=== PATIENT | female | born 1990 | race Caucasian/White ===

== ENCOUNTER 2017-09-24 23:07 | Emergency (ER) | payer MEDICAID ==
[~2017-09-24] VITALS: Ht 170.2 cm; Wt 150.0 kg
[~2017-09-24 23:07] MED LIST: BISA10SU60 RC; FERR325T28 PO; LURA60TA2 PO; MEDR150V IM; PANT-47 PO; SERT50TA PO
[2017-09-24] MEDS ORDERED: sodium polystyrene sulfonate ENEMA 30gm/120ml RC ONE (23:25)
[2017-09-25] MEDS ORDERED: normal saline 1000ML IV soln IVB ONE (00:40)
[2017-09-25] MEDS ORDERED: ketorolac trometh. 30mg/ml inj. IV ONE (00:40)
[2017-09-25 01:50] VITALS: BP 128/70
== END 2017-09-25 01:51 | disposition home or self-care (01) ==
LOC: ER 23:08
DX: R07.89 Other chest pain (principal); K59.00 Constipation, unspecified; J45.909 Unspecified asthma, uncomplicated; Z90.49 Acquired absence of other specified parts of digestive tract; Z79.899 Other long term (current) drug therapy; Z91.013 Allergy to seafood
CPT/HCPCS: 93005; 96361; 96374; 99284; J1885; J7030

== ENCOUNTER 2018-04-09 08:36 | Outpatient (CLI) | payer MEDICAID | END 2018-04-09 23:59 | disposition home or self-care (01) | LOC: RAD 08:36 | PROVIDERS: ATTEND Family Medicine | DX: R56.9 Unspecified convulsions (principal); J45.909 Unspecified asthma, uncomplicated | CPT/HCPCS: 95816 ==

== ENCOUNTER 2018-08-01 16:46 | Emergency (ER) | payer MEDICAID ==
[~2018-08-01] VITALS: Ht 170.2 cm; Wt 168.0 kg
[2018-08-01 16:49] VITALS: BP 143/92
[2018-08-01] MEDS ORDERED: LORazepam 1 MG tablet PO ONE (17:00)
[2018-08-01] MEDS ORDERED: LORazepam 0.5 MG tablet PO ONE (17:10)
== END 2018-08-01 17:24 | disposition home or self-care (01) ==
LOC: ER 16:47
DX: F41.9 Anxiety disorder, unspecified (principal); J45.909 Unspecified asthma, uncomplicated; E66.01 Morbid (severe) obesity due to excess calories; Z90.49 Acquired absence of other specified parts of digestive tract
CPT/HCPCS: 93005; 99284

== ENCOUNTER 2019-03-21 20:29 | Emergency (ER) | payer MEDICAID ==
[~2019-03-21] VITALS: Ht 170.2 cm; Wt 146.0 kg
[2019-03-21 20:47] VITALS: BP 150/75
[2019-03-21] MEDS ORDERED: acetaminophen 325mg tablet PO ONE (20:55)
== END 2019-03-21 22:10 | disposition home or self-care (01) ==
LOC: ER 20:30
DX: M25.532 Pain in left wrist (principal); J45.909 Unspecified asthma, uncomplicated; Z90.49 Acquired absence of other specified parts of digestive tract; Z98.890 Other specified postprocedural states; Z79.899 Other long term (current) drug therapy
CPT/HCPCS: 73110; 99283

== ENCOUNTER 2019-08-08 21:53 | Observation (INO) | payer MEDICAID ==
[~2019-08-08] VITALS: Ht 170.2 cm; Wt 163.2 kg
[2019-08-08] MEDS ORDERED: LURA80TA3 PO (22:04)
[2019-08-08] MEDS ORDERED: LAMO100T2 PO (22:05)
[2019-08-08] MEDS ORDERED: METF-950 PO (22:10)
[2019-08-08] MEDS ORDERED: glycerin ADULT rectal suppository RC ONE (22:50)
[2019-08-08] MEDS ORDERED: magnesium citrate 296ml oral solution PO ONE (22:50)
[2019-08-08] MEDS ORDERED: ondansetron/PF 4mg/2ml inj IV PRN (23:05)
[2019-08-08] MEDS ORDERED: acetaminophen 325mg tablet PO PRN (23:05)
[2019-08-08] MEDS ORDERED: mag hydrox/Alum hydrox/simeth 30ml oral suspension PO PRN (23:05)
[2019-08-08] MEDS ORDERED: insulin Lispro (HumaLOG) vial - multi-dose SQ SCH (23:05)
[2019-08-08] MEDS ORDERED: dextrose 50%-water 50ml dispensing syringe IV PRN ×2 (23:05)
[2019-08-08] MEDS ORDERED: MESSAGE TO PHARMACY PO ONE (23:05)
[2019-08-08] MEDS ORDERED: glucagon, human recombinant 1mg kit SUBCUT PRN (23:05)
[2019-08-08] MEDS ORDERED: dextrose ORAL solution 15 GM/59 ML bottle PO PRN ×2 (23:05)
[2019-08-08 23:51] LABS: BASOPHILS # (AUTO) 0.1 X10'3 (0-0.2); BASOPHILS % (AUTO) 0.7 % (0-1); EOSINOPHILS # (AUTO) 0.1 X10'3 (0-0.9); EOSINOPHILS % (AUTO) 1.1 % (0-6); HEMATOCRIT 34.3 % (35.0-45.0); LYMPHOCYTES # (AUTO) 2.3 X10'3 (1.1-4.8); LYMPHOCYTES % (AUTO) 22.7 % (21-51); MEAN CORPUSCULAR HEMOGLOBIN 23.1 PG (27.0-31.0); MEAN CORPUSCULAR HGB CONC 32.2 g/dL (33.0-36.5); MEAN CORPUSCULAR VOLUME 71.7 FL (78-98); MONOCYTES # (AUTO) 0.5 X10'3 (0-0.9); MONOCYTES % (AUTO) 4.7 % (2-12); NEUTROPHILS # (AUTO) 7.3 X10'3 (1.8-7.7); NEUTROPHILS % (AUTO) 70.8 % (42-75); PLATELET COUNT 505 X10'3 (140-440); RED BLOOD COUNT 4.78 X10'6 (4.20-5.60); RED CELL DISTRIBUTION WIDTH 18.6 % (11.5-14.5); WHITE BLOOD COUNT 10.3 X10'3 (4.5-11.0)
[2019-08-09 00:11] LABS: HEMOGLOBIN A1C 6.1 % (4.5-6.2)
[2019-08-09 00:14] LABS: ALANINE AMINOTRANSFERASE 26 U/L (12-78); ALBUMIN 3.5 G/DL (3.4-5.0); ALBUMIN/GLOBULIN RATIO 0.9 (1.1-1.5); ALKALINE PHOSPHATASE 123 IU/L (46-116); ANION GAP 12 (8-16); ASPARTATE AMINO TRANSFERASE 12 U/L (10-37); BILIRUBIN,TOTAL 0.2 MG/DL (0.1-1.0); BLOOD UREA NITROGEN 13 MG/DL (7-18); BUN/CREATININE RATIO 14.8 (6.6-38.0); CALCIUM 9.1 MG/DL (8.5-10.1); CHLORIDE 106 MMOL/L (99-107); CREATININE 0.88 MG/DL (0.40-0.90); GLUCOSE 99 MG/DL (70-104); POTASSIUM 4.1 MMOL/L (3.5-5.1); SODIUM 143 MMOL/L (135-145); TOTAL CARBON DIOXIDE 25.4 MMOL/L (24-32); TOTAL PROTEIN 7.5 G/DL (6.4-8.2); eGFR 77 ML/MIN
[2019-08-09 00:24] LABS: ANISOCYTOSIS 2+; ELLIPTOCYTES FEW; LARGE PLATELETS FEW; MICROCYTOSIS 1+; PLATELET ESTIMATE INCREASED; POLYCHROMASIA FEW
[2019-08-09 00:35] VITALS: BP 140/73
--- NOTE | 2019-08-09 03:10 | NUR ---
Patient had a BM, foreign object expelled and placed in bag . Talked to Dr. Marcelo. Pt will remain NPO for scheduled KUB in the morning. Pt aware of treatment and agrees.
--- NOTE | 2019-08-09 06:15 | NUR ---
Problems reprioritized. Patient report given, questions answered & plan of care reviewed with PAO Jose.
--- NOTE | 2019-08-09 06:20 | NUR ---
After receiving report from NOC shift, morning nurse in to meet patient and check on her. Patient stated a desire to leave AMA. Patient was due to have a KUB this AM to reassess the status of the foreign body. Patient stated that this had come out already and she feels much better and really doesn't want to stay. MD notified and stated he was not ready to discharge patient. This was explained to patient and partner bedside. Patient was educated about the risks involved with leave AMA, patient stated an understanding of these and still wanted to leave AMA. Patient was alert, oriented and capable of making own decisions. Patient signed AMA paper, grabbed belongings and left with partner. Patient did not have an PIV to remove.
[2019-08-09] MEDS ORDERED: lamoTRIgine 100mg tablet PO SCH (08:00)
[2019-08-09] MEDS ORDERED: insulin glargine (Lantus) pen - multi-dose SQ SCH (21:00)
[2019-08-09] MEDS ORDERED: lurasidone 20mg tablet PO SCH (21:00)
== END 2019-08-09 06:20 | disposition left against medical advice (07) ==
LOC: ER 21:53 → ED HOLD 23:31 → SUR 3N 08-09 00:15
PROVIDERS: ADMIT Family Medicine; ATTEND Family Medicine
DX: T18.5XXA Foreign body in anus and rectum, initial encounter (principal); J45.909 Unspecified asthma, uncomplicated; G47.33 Obstructive sleep apnea (adult) (pediatric); E11.9 Type 2 diabetes mellitus without complications; F31.9 Bipolar disorder, unspecified; Z99.89 Dependence on other enabling machines and devices; Z79.84 Long term (current) use of oral hypoglycemic drugs; Z79.899 Other long term (current) drug therapy; Z91.013 Allergy to seafood
CPT/HCPCS: 36415; 74018; 80053; 83036; 85025; 87081; 99284; G0378; J1815

== ENCOUNTER → 2021-04-30 | Emergency (ER) | payer SELFPAY ==
[~2021-04-30] VITALS: Ht 170.2 cm; Wt 172.0 kg
[~2021-04-30] MED LIST changes: -BISA10SU60 RC; -FERR325T28 PO; +LAMO100T2 PO; -LURA60TA2 PO; +LURA80TA3 PO; +METF-950 PO; -PANT-47 PO; -SERT50TA PO
[2021-04-30 08:01] VITALS: BP 139/77
[2021-04-30 08:59] LABS: BASOPHILS % (AUTO) 0.4 % (0-1); EOSINOPHILS # (AUTO) 0.1 X10'3 (0-0.9); EOSINOPHILS % (AUTO) 1.1 % (0-6); HEMATOCRIT 32.9 % (35.0-45.0); HEMOGLOBIN 10.7 g/dl (12.0-16.0); LYMPHOCYTES # (AUTO) 1.9 X10'3 (1.1-4.8); LYMPHOCYTES % (AUTO) 22.1 % (21-51); MEAN CORPUSCULAR HEMOGLOBIN 23.8 PG (27.0-31.0); MEAN CORPUSCULAR HGB CONC 32.5 g/dL (33.0-36.5); MEAN CORPUSCULAR VOLUME 73.3 FL (78-98); MEAN PLATELET VOLUME 7.9 FL (7.4-10.4); MONOCYTES # (AUTO) 0.5 X10'3 (0-0.9); MONOCYTES % (AUTO) 5.4 % (2-12); NEUTROPHILS # (AUTO) 6.1 X10'3 (1.8-7.7); PLATELET COUNT 462 X10'3 (140-440); RED BLOOD COUNT 4.49 X10'6 (4.20-5.60); RED CELL DISTRIBUTION WIDTH 17.3 % (11.5-14.5); WHITE BLOOD COUNT 8.6 X10'3 (4.5-11.0)
[2021-04-30 09:13] LABS: ALANINE AMINOTRANSFERASE 28 U/L (12-78); ALBUMIN 3.3 G/DL (3.4-5.0); ALBUMIN/GLOBULIN RATIO 0.8 (1.1-1.5); ALKALINE PHOSPHATASE 127 IU/L (46-116); ANION GAP 8 (8-16); ASPARTATE AMINO TRANSFERASE 20 U/L (10-37); BILIRUBIN,TOTAL 0.4 MG/DL (0.1-1.0); BLOOD UREA NITROGEN 14 MG/DL (7-18); BUN/CREATININE RATIO 15.2 (6.6-38.0); CHLORIDE 107 MMOL/L (99-107); CREATININE 0.92 MG/DL (0.40-0.90); GLUCOSE 105 MG/DL (70-104); LIPASE 67 U/L (73-393); POTASSIUM 4.1 MMOL/L (3.5-5.1); SODIUM 140 MMOL/L (135-145); TOTAL CARBON DIOXIDE 25.2 MMOL/L (24-32); TOTAL PROTEIN 7.3 G/DL (6.4-8.2); eGFR 72 ML/MIN
[2021-04-30 10:34] LABS: URINE HCG NEGATIVE (NEG)
[2021-04-30 10:45] LABS: CLARITY,URINE SLIGHTLY CLOUDY (Clear); COLOR,URINE YELLOW (Yellow); GLUCOSE, URINE NEGATIVE (Neg); KETONES,URINE NEGATIVE (Neg); LEUKOCYTE ESTERASE ,URINE NEGATIVE (Neg); NITRITES, URINE NEGATIVE (Neg); OCCULT BLOOD,URINE NEGATIVE (Neg); PROTEIN,URINE NEGATIVE (Neg); UA COLLECTION TYPE CLN CATCH MIDSTREAM; UROBILINOGEN,URINE 0.2 E.U/dL (0.2-1.0)
== END | disposition left against medical advice (07) ==
LOC: ER 07:50
DX: R10.9 Unspecified abdominal pain (principal); Z53.21 Procedure and treatment not carried out due to patient leaving prior to being seen by health care provider
CPT/HCPCS: 36415; 80053; 81003; 81025; 83690; 85025

== ENCOUNTER 2022-09-15 19:09 | Emergency (ER) | payer BC ==
[~2022-09-15] VITALS: Ht 170.2 cm; Wt 129.2 kg
[~2022-09-15 19:09] MED LIST changes: +LURA80TA2 PO; -LURA80TA3 PO; +METF-1203 PO; -METF-950 PO
[2022-09-15 19:14] VITALS: BP 129/79
== END 2022-09-15 22:03 | disposition left against medical advice (07) ==
LOC: ER 19:09
DX: R10.9 Unspecified abdominal pain (principal); Z53.21 Procedure and treatment not carried out due to patient leaving prior to being seen by health care provider
CPT/HCPCS: 99281

== ENCOUNTER → 2022-12-15 | Day surgery (SDC) | payer BC ==
[2022-12-08 10:38] LABS: HCG SERUM QL NEGATIVE
[2022-12-08 10:41] LABS: BLOOD UREA NITROGEN 12 MG/DL (7-18); BUN/CREATININE RATIO 16.2 (10.0-20.0); CALCIUM 9.1 MG/DL (8.5-10.1); CHLORIDE 104 MMOL/L (99-107); CREATININE 0.74 MG/DL (0.40-0.90); PRE OP ANION GAP 3 (8-16); PRE OP BILIRUB, TOTAL 0.3 MG/DL (0.0-1.0); PRE OP GLUCOSE 92 MG/DL (70-104); PRE OP POTASSIUM 4.2 MMOL/L (3.4-5.1); PRE OP SODIUM 138 MMOL/L (135-145); TOTAL CARBON DIOXIDE 30.9 MMOL/L (24-32); eGFR > 90 ML/MIN
[2022-12-08 10:42] LABS: ALBUMIN 3.7 G/DL (3.4-5.0); ALBUMIN/GLOBULIN RATIO 1.2 (1.1-1.5); ALKALINE PHOSPHATASE 84 IU/L (46-116); PRE OP ALT 35 U/L (30-65); PRE OP AST 22 U/L (10-37); TOTAL PROTEIN 6.8 G/DL (6.4-8.2)
[2022-12-08 10:43] LABS: BASOPHILS % (AUTO) 0.8 % (0-1); EOSINOPHILS # (AUTO) 0.1 X10'3 (0-0.9); EOSINOPHILS % (AUTO) 1.2 % (0-6); LYMPHOCYTES # (AUTO) 1.5 X10'3 (1.1-4.8); LYMPHOCYTES % (AUTO) 25.2 % (21-51); MEAN CORPUSCULAR HGB CONC 33.7 g/dL (33.0-36.5); MEAN PLATELET VOLUME 8.1 FL (7.4-10.4); MONOCYTES # (AUTO) 0.4 X10'3 (0-0.9); MONOCYTES % (AUTO) 6.2 % (2-12); NEUTROPHILS # (AUTO) 4.1 X10'3 (1.8-7.7); NEUTROPHILS % (AUTO) 66.6 % (42-75); PRE OP HEMATOCRIT 36.7 % (35.0-45.0); PRE OP HEMOGLOBIN 12.4 g/dL (12.0-16.0); PRE OP PLATELET COUNT 378 X10'3 (140-440); RED BLOOD COUNT 4.27 X10'6 (4.20-5.60); RED CELL DISTRIBUTION WIDTH 14.1 % (11.5-14.5)
[~2022-12-15] VITALS: Ht 170.2 cm; Wt 137.0 kg
[2022-12-15] VITALS (7 sets, daily range): BP systolic 116–135; BP diastolic 58–69
[~2022-12-15] MED LIST changes: +ATOM40CA PO; +BUPIVAcaine/PF 2.5 mg/ml (0.25%) 30ml vial ONE; +CYCL-1 PO; -LAMO100T2 PO; +LIDOcaine 2% (20mg/ml) 5ml vial ONE; +LORA-269 PO; -LURA80TA2 PO; -MEDR150V IM; -METF-1203 PO; +ONDA8TAB13 PO; +OXCA300T4 PO; +RIME75TA SL; +SERT50TA PO; +SUMA50TA PO; +TOP100T PO; +acetaminophen 325mg tablet PO ONE; +dexamethasone sod phosphate 4mg/ml inj. ONE; +famotidine 20mg tablet PO ONE; +fentaNYL/PF 50MCG/1 ML 2ML syringe IV PRN; +fentaNYL/PF 50MCG/1 ML 2ML syringe ONE; +glycopyrrolate 0.2mg/ml inj ONE; +hydrALAZINE 20mg/ml inj. IV ONE; +hydrALAZINE 20mg/ml inj. IV PRN; +ketorolac trometh. 30mg/ml inj. ONE; +labetalol 20mg/4ml (5mg/ml) syringe IV PRN; +midazolam 1 mg/ML 2ml injection ONE; +morphine 2 MG/ML inj. syringe IV PRN; +morphine 4 MG/ML inj SYRINge IV PRN; +neostigmine methylsulfate 1 MG/ML 10ml vial ONE; +ondansetron/PF 4mg/2ml inj IV PRN; +ondansetron/PF 4mg/2ml inj ONE; +propofol inj 20 ML IV ONE; +ringers solution, lacted 1,000 ML IV SCH; +rocuronium 10mg/ml inj IV ONE; +sevoflurane 250ml liquid IH ONE
--- NOTE | 2022-12-15 11:10 | NUR ---
DR BERGMAN OKAY WITH NOT PERFORMING SAME DAY HCG TEST AFTER SPEAKING TO PT. PT STATES SHE HAS ABSTAINED FROM INTERCOURSE WITH FOR 30 DAYS IN PREPARATION FOR THIS SURGERY. ANESTHESIA OKAY WITH NOT PERFORMING SAME DAY HCG. SURGERY TO PROCEED SCHEDULED
== END | disposition home or self-care (01) ==
LOC: PAS 07:38
PROVIDERS: ATTEND Obstetrics & Gynecology
DX: Z30.2 Encounter for sterilization (principal); N92.0 Excessive and frequent menstruation with regular cycle; N80.3C1 Endometriosis of the right uterosacral ligament, unspecified depth; N80.399 Endometriosis of the pelvic peritoneum, other specified sites, unspecified depth; K21.9 Gastro-esophageal reflux disease without esophagitis; F41.9 Anxiety disorder, unspecified; F32.A Depression, unspecified; J45.909 Unspecified asthma, uncomplicated; G47.30 Sleep apnea, unspecified; F90.9 Attention-deficit hyperactivity disorder, unspecified type; G43.909 Migraine, unspecified, not intractable, without status migrainosus; E66.01 Morbid (severe) obesity due to excess calories; Z68.42 Body mass index [BMI] 45.0-49.9, adult; Z88.8 Allergy status to other drugs, medicaments and biological substances; Z91.013 Allergy to seafood; Z91.018 Allergy to other foods; Z91.09 Other allergy status, other than to drugs and biological substances; Z79.899 Other long term (current) drug therapy; Z90.49 Acquired absence of other specified parts of digestive tract; Z98.890 Other specified postprocedural states; Z98.84 Bariatric surgery status; Z82.49 Family history of ischemic heart disease and other diseases of the circulatory system; Z83.3 Family history of diabetes mellitus
CPT/HCPCS: 36415; 58563; 58662; 58670; 80053; 82948; 84703; 85025; 86885; 86900; 86901; 93005; J0360; J1100; J1885; J2250; J2270; J2405; J2704; J2710; J3010; J3490; J7030; J7120; Z7506; Z7508; Z7512; A4355; A4618; A4649

== ENCOUNTER 2023-03-24 16:32 | Emergency (ER) | payer BC ==
[~2023-03-24 16:32] MED LIST changes: -BUPIVAcaine/PF 2.5 mg/ml (0.25%) 30ml vial ONE; -LIDOcaine 2% (20mg/ml) 5ml vial ONE; -acetaminophen 325mg tablet PO ONE; -dexamethasone sod phosphate 4mg/ml inj. ONE; -famotidine 20mg tablet PO ONE; -fentaNYL/PF 50MCG/1 ML 2ML syringe IV PRN; -fentaNYL/PF 50MCG/1 ML 2ML syringe ONE; -glycopyrrolate 0.2mg/ml inj ONE; -hydrALAZINE 20mg/ml inj. IV ONE; -hydrALAZINE 20mg/ml inj. IV PRN; -ketorolac trometh. 30mg/ml inj. ONE; -labetalol 20mg/4ml (5mg/ml) syringe IV PRN; -midazolam 1 mg/ML 2ml injection ONE; -morphine 2 MG/ML inj. syringe IV PRN; -morphine 4 MG/ML inj SYRINge IV PRN; -neostigmine methylsulfate 1 MG/ML 10ml vial ONE; -ondansetron/PF 4mg/2ml inj IV PRN; -ondansetron/PF 4mg/2ml inj ONE; -propofol inj 20 ML IV ONE; -ringers solution, lacted 1,000 ML IV SCH; -rocuronium 10mg/ml inj IV ONE; -sevoflurane 250ml liquid IH ONE
== END 2023-03-24 19:28 | disposition left against medical advice (07) ==
LOC: ER 16:32
DX: G43.909 Migraine, unspecified, not intractable, without status migrainosus (principal); Z53.21 Procedure and treatment not carried out due to patient leaving prior to being seen by health care provider

== ENCOUNTER 2023-06-09 21:32 | Emergency (ER) | payer BC ==
[~2023-06-09] VITALS: Ht 170.2 cm; Wt 143.2 kg
--- NOTE | 2023-06-09 22:01 | NUR ---
Spoke to QUE r/anastasia Pt's statement of owning a gun w/ SI. Log number# [id number], Spoke to Karmen
[2023-06-09 22:06] LABS: BASOPHILS # (AUTO) 0.1 X10'3 (0-0.2); BASOPHILS % (AUTO) 0.7 % (0-1); EOSINOPHILS # (AUTO) 0.1 X10'3 (0-0.9); EOSINOPHILS % (AUTO) 1.6 % (0-6); HEMATOCRIT 35.4 % (35.0-45.0); HEMOGLOBIN 11.4 g/dl (12.0-16.0); LYMPHOCYTES # (AUTO) 2.8 X10'3 (1.1-4.8); LYMPHOCYTES % (AUTO) 32.5 % (21-51); MEAN CORPUSCULAR HEMOGLOBIN 25.7 PG (27.0-31.0); MEAN CORPUSCULAR HGB CONC 32.2 g/dL (33.0-36.5); MEAN CORPUSCULAR VOLUME 79.8 FL (78-98); MEAN PLATELET VOLUME 7.8 FL (7.4-10.4); MONOCYTES # (AUTO) 0.5 X10'3 (0-0.9); MONOCYTES % (AUTO) 5.9 % (2-12); NEUTROPHILS # (AUTO) 5.2 X10'3 (1.8-7.7); NEUTROPHILS % (AUTO) 59.3 % (42-75); PLATELET COUNT 391 X10'3 (140-440); RED BLOOD COUNT 4.44 X10'6 (4.20-5.60); RED CELL DISTRIBUTION WIDTH 16.6 % (11.5-14.5); WHITE BLOOD COUNT 8.7 X10'3 (4.5-11.0)
[2023-06-09 22:16] LABS: ALANINE AMINOTRANSFERASE 30 U/L (12-78); ALBUMIN 3.4 G/DL (3.4-5.0); ALBUMIN/GLOBULIN RATIO 0.9 (1.1-1.5); ALKALINE PHOSPHATASE 103 IU/L (46-116); ANION GAP 6 (8-16); ASPARTATE AMINO TRANSFERASE 18 U/L (10-37); BILIRUBIN,TOTAL 0.1 MG/DL (0.1-1.0); BLOOD UREA NITROGEN 12 MG/DL (7-18); BUN/CREATININE RATIO 14.5 (10.0-20.0); CHLORIDE 103 MMOL/L (99-107); CREATININE 0.83 MG/DL (0.40-0.90); ETHANOL < 10 MG/DL (<10); GLUCOSE 95 MG/DL (70-104); POTASSIUM 4.1 MMOL/L (3.5-5.1); SODIUM 136 MMOL/L (135-145); TOTAL CARBON DIOXIDE 26.6 MMOL/L (24-32); eCRCL 96 ML/MIN; eGFR 80 ML/MIN
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
[2023-06-09] MEDS ORDERED: TRAZ-251 PO (23:12)
[2023-06-09] MEDS ORDERED: ACET500C62 PO (23:12)
[2023-06-09] MEDS ORDERED: VERA40TA5 PO (23:12)
[2023-06-09] MEDS ORDERED: ROSU20TA2 PO (23:12)
--- NOTE | 2023-06-09 23:15 | NUR ---
Patient is cooperative and resting quietly. No distress. In direct view from nurses station.
[2023-06-10 00:15] VITALS: PULSE 76; RESP 16; O2SAT 99
[2023-06-10] MEDS ORDERED: traZODone 50mg tablet PO ONE (00:15)
[2023-06-10] MEDS ORDERED: LORazepam 1 MG tablet PO ONE (00:15)
[2023-06-10] MEDS ORDERED: sertraline 50mg tablet PO ONE (00:15)
[2023-06-10] MEDS ORDERED: acetaZOLAMIDE 250mg tablet PO ONE (00:15)
[2023-06-10] MEDS ORDERED: LORazepam 1 MG tablet PO PRN (00:20)
[2023-06-10] MEDS ORDERED: cyclobenzaprine 10mg tablet PO PRN (00:20)
--- NOTE | 2023-06-10 00:22 | NUR ---
[facility] Urine was sent for UA.
--- NOTE | 2023-06-10 00:23 | NUR ---
Patient was fitted for BIPAP by Resp Tech.
[2023-06-10] MEDS ORDERED: LORazepam 0.5 MG tablet PO PRN (00:25)
[2023-06-10] MEDS ORDERED: acetaZOLAMIDE 500mg capsule.SA PO ONE (00:30)
[2023-06-10] MEDS ORDERED: ondansetron 4mg rapidly disintigrating tab PO PRN (00:30)
[2023-06-10 00:32] LABS: URINE HCG NEGATIVE (NEG)
[2023-06-10 00:50] LABS: URINE AMPHETAMINE SCREEN NEGATIVE (Neg); URINE BARBITUATE SCREEN NEGATIVE (Neg); URINE BENZODIAZEPINES SCREEN NEGATIVE (Neg); URINE CANNABINOID SCREEN NEGATIVE (Neg); URINE COCAINE SCREEN NEGATIVE (Neg); URINE METHADONE SCREEN NEGATIVE (Neg); URINE OPIATE SCREEN NEGATIVE (Neg); URINE PHENCYCLIDINE SCREEN NEGATIVE (Neg)
[2023-06-10] MEDS ORDERED: LORazepam 0.5 MG tablet PO ONE (01:05)
--- NOTE | 2023-06-10 01:15 | NUR ---
Patient took night Rx med's, including Ativan 0.5 mg once.
--- NOTE | 2023-06-10 01:16 | NUR ---
Patient is fitted for BIPAP and returning to sleep.
--- NOTE | 2023-06-10 01:50 | NUR ---
Patient is sleeping quietly, no distress.
[2023-06-10 03:12] VITALS: PULSE 74; RESP 16; O2SAT 98
--- NOTE | 2023-06-10 03:17 | NUR ---
Patient is sleeping quietly on BIPAP. Good color. No distress.
[2023-06-10 03:42] LABS: THYROID STIMULATING HORMONE 3.43 ulU/ml (0.34-4.50)
--- NOTE | 2023-06-10 04:35 | NUR ---
Patient has been sleeping quietly on her BIPAP. Good color. She looks comfortible.
[2023-06-10 05:41] VITALS: BP 122/70; PULSE 70; TEMP 98; O2SAT 100
--- NOTE | 2023-06-10 07:27 | NUR ---
PT IS IN BED RESTING, BREATHING EVEN, UNLABORED
[2023-06-10 07:58] VITALS: RESP 17
[2023-06-10] MEDS ORDERED: ROSUVASTATIN CALCIUM 5 MG TABLET PO SCH (08:00)
[2023-06-10] MEDS ORDERED: acetaZOLAMIDE 500mg capsule.SA PO SCH (08:00)
--- NOTE | 2023-06-10 08:00 | NUR ---
PT SITTING UP EATING BREAKFAST.
--- NOTE | 2023-06-10 08:30 | NUR ---
PT TOOK HER 0800 MEDICATIONS WITH NO PROBLEM.
--- NOTE | 2023-06-10 09:02 | NUR ---
SERA PARSONS IS AT BEDSIDE WITH PT
--- NOTE | 2023-06-10 09:47 | NUR ---
PT ASLEEP IN BED. BREATHING EVEN, UNLABORED
--- NOTE | 2023-06-10 10:00 | NUR ---
PTS IS AT BEDSIDE WITH PT.
--- NOTE | 2023-06-10 10:07 | NUR ---
SERA PARSONS IS AT BEDSIDE TALKING WITH PT AND PTS
[2023-06-10] MEDS ORDERED: traZODone 50mg tablet PO SCH (21:00)
[2023-06-10] MEDS ORDERED: sertraline 50mg tablet PO SCH (21:00)
== END 2023-06-10 10:27 | disposition home or self-care (01) ==
LOC: ER 21:33
DX: R45.851 Suicidal ideations (principal); Z20.822 Contact with and (suspected) exposure to COVID-19; F32.A Depression, unspecified; J45.909 Unspecified asthma, uncomplicated; E11.9 Type 2 diabetes mellitus without complications
CPT/HCPCS: 36415; 80053; 80305; 80320; 81025; 84443; 85025; 87811; 94660; 94760; 99285